=== PATIENT | female | born 1945 | race Caucasian/White ===

== ENCOUNTER 2016-09-12 06:52 | Day surgery (SDC) | payer MEDICARE, OTHER ==
--- NOTE | ~2016-09-12 | EGD ---
EGD REPORT [facility] [address] [id number] NAME: JOHN NEW : [birth year] STATUS : REG [facility] PAT#: [id number] AGE: 71 ADM/REG DATE : 09/12/16 MR#: [id number] REPORT SERV DATE: 09/12/16 DICTATED BY: ZENIA ROCHA DATE: 09/12/16 REPORT STATUS : Draft TRANSCRIBED BY: [facility] DATE: 09/12/16 End[facility] Center Patient Name: John New Date of : 1945 Attending MD: ZENIA ROCHA MD Procedure Date No Time: 09/12/2016 Procedure: Upper GI endoscopy Indications: Epigastric abdominal pain, Abdominal pain in the right upper quadrant; Omeprazole 20mg daily. Patient Profile: Informed consent was obtained from the patient by me prior to the procedure. Risks, benefits, and alternatives were discussed including the risk of bleeding, perforation, infection, reaction to medicine, missed lesion, and cardiopulmonary complications. Referring MD: JEY MORALES JR, MACY CASANOVA III, MD Medicines: Monitored Anesthesia Care Complications: No immediate complications. Procedure: Pre-Anesthesia Assessment: - ASA Grade Assessment: III - A patient with severe systemic disease. After obtaining informed consent, the endoscope was passed under direct vision. Throughout the procedure, the patient's blood pressure, pulse, and oxygen saturations were monitored continuously. The GIF [id number] was introduced through the mouth, and advanced to the third part of duodenum. The endoscope was withdrawn with careful examination all mucosal surfaces including retroflexion stomach. The upper GI endoscopy was accomplished without difficulty. The patient tolerated the procedure well. Findings: The 3rd part of the duodenum was normal. The 2nd part of the duodenum was normal. Biopsies were taken with a cold forceps for histology. The first part of the duodenum was normal. The entire examined stomach was normal. A large hiatus hernia was present. GEJ at 32cm. The examined esophagus was normal. The esophagus and gastroesophageal junction were examined with white light. There was no visual evidence of Vargas's esophagus. Impression: - Normal 3rd part of the duodenum. - Normal 2nd part of the duodenum. Biopsied. - Normal first part of the duodenum. EGD REPORT [address] [address] NAME: JOHN NEW : [birth year] STATUS : REG [facility] PAT#: [id number] AGE: 71 ADM/REG DATE : 09/12/16 MR#: [id number] REPORT SERV DATE: 09/12/16 DICTATED BY: ZENIA ROCHA DATE: 09/12/16 REPORT STATUS : Draft TRANSCRIBED BY: [employer] DATE: 09/12/16 - Normal stomach. - Hiatus hernia. - Normal esophagus. - There is no endoscopic evidence of Vargas's esophagus. Recommendation: - Patient has a contact number available for emergencies. The signs and symptoms of potential delayed complications were discussed with the patient. Return to normal activities tomorrow. Written discharge instructions were provided to the patient. - Regular diet. - Continue present medications. - Await pathology results. - Await MRCP results; Surgery appt. Dr. Casanova pending. Procedure Code(s): --- Professional --- 06127, Esophagogastroduodenoscopy, flexible, transoral; with biopsy, single or multiple Diagnosis Code(s): --- Professional --- K44.9, Diaphragmatic hernia without obstruction or gangrene R10.13, Epigastric pain R10.11, Right upper quadrant pain CPT copyright 2013 [employer]. All rights reserved. The codes documented in this report are preliminary and upon high density press operator review may be revised to meet current compliance requirements. ZENIA ROCHA MD 09/12/2016 8:41 AM This report has been signed electronically. Number of Addenda: 0 Note Initiated On: 09/12/2016 8:25 AM Scope Withdrawal Time 0 hours 0 minutes 0 seconds [address] [id number]
[~2016-09-12 06:52] MED LIST: CALTRAT600 PO; DENIES HOME MEDS; PRILOSEC OTC20 MG PO; SUCR PO
[2016-11-03] MEDS ORDERED: CO Q-10100 MG PO (09:27)
[2016-11-03] MEDS ORDERED: VITE1000 PO (09:27)
[2016-11-06] MEDS ORDERED: PERCOCET 7.5/321 TAB PO (09:15)
== END 2016-09-12 23:59 | disposition home health service (06) ==
LOC: DMU 06:52
PROVIDERS: Internal Medicine Gastroenterology
PROC: 0DB98ZX Excision of Duodenum, Via Natural or Artificial Opening Endoscopic, Diagnostic (ICD-10-PCS; principal; 2016-09-12 08:30)
DX: K44.9 Diaphragmatic hernia without obstruction or gangrene (principal); I10 Essential (primary) hypertension; M13.819 Other specified arthritis, unspecified shoulder; L40.8 Other psoriasis; F41.9 Anxiety disorder, unspecified; Z90.49 Acquired absence of other specified parts of digestive tract; Z88.1 Allergy status to other antibiotic agents; Z88.5 Allergy status to narcotic agent; Z98.890 Other specified postprocedural states
CPT/HCPCS: 86704; 86709; 86803; 87340; 88305